=== PATIENT | female | born 1955 | race Caucasian/White ===

== ENCOUNTER 2017-05-13 21:36 | Emergency (ER) | payer MEDICAID ==
[~2017-05-13] VITALS: Ht 167.6 cm; Wt 81.6 kg
[2017-05-13 21:57] VITALS: BP 137/75
--- NOTE | 2017-05-13 22:11 | NUR ---
DR. SAHU AT BEDSIDE FOR EVAL.
== END 2017-05-13 22:35 | disposition home or self-care (01) ==
LOC: ER 21:36
DX: R21 Rash and other nonspecific skin eruption (principal); E11.9 Type 2 diabetes mellitus without complications; I10 Essential (primary) hypertension; Z95.5 Presence of coronary angioplasty implant and graft
CPT/HCPCS: A4606; Z7502; Z7610